=== PATIENT | female | born 1995 | race Caucasian/White ===

== ENCOUNTER 2016-10-18 14:50 | Emergency (ER) | payer OTHER ==
[~2016-10-18] VITALS: Ht 160 cm; Wt 84.9 kg
[~2016-10-18 14:50] MED LIST: AMOX500T3 PO; NORE0.3527 PO; PRENTAB26 PO
[2016-10-18 15:03] VITALS: TEMP 36.6; Ht 160 cm; Wt 84.9 kg
[2016-10-18] MEDS ORDERED: KETOROLAC TROMETHAMINE 30 MG/ML VIAL IV STA (15:19)
[2016-10-18 15:24] VITALS: O2SAT 97
[2016-10-18] MEDS ORDERED: SODIUM CHLORIDE 0.9% 1000ML 1,000 ML IV ONE (15:30)
[2016-10-18 15:41] LABS: BASO % 0.3 %; BASO ABS # 0.03 K/uL (0-0.2); COMPLETE YES; EOS % 7.5 %; HEMATOCRIT 41.4 % (37-47); IG% 0.1 %; LYMPH % 16.6 %; LYMPH ABS # 1.73 K/uL (1.2-3.4); MEAN CORPUSCULAR HEMOGLOBIN 27.5 pg (25-34); MEAN CORPUSCULAR HGB CONC 33.6 g/dl (32-36); MEAN PLATELET VOLUME 11.5 fL (7.4-10.4); MONO % 8.8 %; NEUT % 66.7 %; PLATELET COUNT 231 K/uL (130-400); RED BLOOD COUNT 5.05 M/uL (4.2-5.4); WHITE BLOOD COUNT 10.45 K/uL (4.8-10.8)
[2016-10-18] MEDS ORDERED: CHOL1000 PO (15:42)
[2016-10-18] MEDS ORDERED: ETON1IMP2 ID (15:42)
[2016-10-18] MEDS ORDERED: FLUO40CA8 PO (15:42)
[2016-10-18] MEDS ORDERED: ACET325T96 PO (15:43)
[2016-10-18 15:55] LABS: URINE APPEARANCE CLEAR (CLEAR); URINE BILIRUBIN NEG (NEG); URINE COLOR YELLOW; URINE NITRITE NEG (NEG); URINE PH 6.5 (4.5-7.5); URINE SPECIFIC GRAVITY 1.012 (1.000-1.030); UROBILINOGEN NEG (NEG); ZZUR CULT IF INDIC CLEAN CATCH NO
--- NOTE | 2016-10-18 16:00 | DIAGNOSTIC IMAGING REPORT ---
CHEST 2 VIEWS ROUTINE CLINICAL HISTORY: Chest pains dyspnea COMPARISON STUDY: No previous studies for comparison. FINDINGS: The bones soft tissues and hemidiaphragms are normal. The cardiomediastinal silhouette is normal. The lungs are clear. The pulmonary vasculature is normal. IMPRESSION: Negative chest. Electronically signed by: Timoteo Pond M.D. 10/18/2016 3:58 PM Dictated Date/Time: 10/18/2016 3:57 PM
[2016-10-18 16:02] LABS: BUN/CREATININE RATIO 23.1 (10-20); CALCIUM 8.9 mg/dl (8.5-10.1); CREATININE 0.9 mg/dl (0.60-1.20); POTASSIUM 4.1 mmol/L (3.5-5.1)
[2016-10-18 16:04] LABS: MANUAL MICROSCOPIC REQUIRED? NO; REVIEW REQ? NO
[2016-10-18 16:13] LABS: ALB/GLOB RATIO 1.1 (0.9-2); THYROID STIMULATING HORMONE 1.06 uIu/ml (0.300-4.500)
[2016-10-18] MEDS ORDERED: OPTIRAY 320 IV PRN (16:15)
--- NOTE | 2016-10-18 16:16 | DIAGNOSTIC IMAGING REPORT ---
CT ANGIOGRAM OF THE CHEST CLINICAL HISTORY: Atypical chest pain and shortness of breath COMPARISON STUDY: Chest x-ray dated 10/18/2016 TECHNIQUE: Following the IV administration of 93 mL of Optiray-320, CT angiogram of the thorax was performed from the thoracic inlet to the lung bases utilizing the pulmonary embolus protocol. Images are reviewed in the axial, sagittal, and coronal planes. IV contrast was administered without complication. MIP imaging was performed. CT DOSE: 386.67 mGy.cm FINDINGS: No pathologically enlarged axillary mediastinal or hilar lymph nodes were visualized. There was no evidence of thoracic aortic dilatation. There were no pulmonary artery filling defects to indicate acute pulmonary embolism. No pleural effusions are visualized. There was no evidence of focal pulmonary consolidation. IMPRESSION: 1. No acute intrathoracic findings 2. No CT evidence of acute pulmonary embolism 3. No evidence of focal pulmonary consolidation Electronically signed by: Carlton Dong M.D. 10/18/2016 4:14 PM Dictated Date/Time: 10/18/2016 4:11 PM
[2016-10-18 17:02] VITALS: BP 123/74; PULSE 68; O2SAT 99
--- NOTE | 2016-10-18 21:01 | EMERGENCY ROOM VISIT NOTE ---
History First contact with patient: 15:07 Chief Complaint: BACK PAIN Stated Complaint: CHEST/BACK PAIN History of Present Illness The patient is a 21 year old female who presents to the Emergency Room with complaints of back pain that began yesterday while having intercourse with her boyfriend. The patient states that she has had mid back pain that is now radiating into her chest since last evening. She does report some ongoing back pain chronically. The patient has not had fever or chills. No abdominal pain. She is on control and denies recent travel history. The patient was able to work today, but this exacerbated her chest pain symptoms. She did not sleep well last night. She has not taken anything [id number] for her discomfort which she currently rates an 8/10. Review of Systems More than 10 systems were reviewed and otherwise negative with the exception of history of present illness. Past Medical/Surgical History Medical Problems: (1) Abdominal Pain, Unspecified Site (2) Acute Pharyngitis (3) Bronchitis (4) Contusion of right foot (5) Cramping affecting , antepartum (6) Early stage of (7) Early stage of (8) Encounter for removal of sutures (9) Epistaxis (10) First trimester (11) History of miscarriage (12) Incomplete (13) Nasal & Sinus Dis Nec (14) Nausea vomiting and diarrhea (15) Oth Malaise&Fatigue (16) Pelvic pain (17) Pelvic pain (18) Periapical abscess (19) (20) Subchorionic hemorrhage (21) Syncope And Collapse (22) term in labor (23) Urin Tract Infection Nos (24) Urinary tract infection (25) Urinary tract infection (26) UTI (urinary tract infection) (27) Vaginal bleeding (28) Vaginal bleeding (29) Vaginal bleeding (30) Vaginal discharge (31) Vaginal discharge (32) Vaginitis Nos Surgical Problems: (1) H/O wisdom tooth extraction Family History Cancer Diabetes mellitus Social History Smoking Status: Current Every Day Smoker Alcohol Use: none Drug Use: none Marital Status: in relationship Housing Status: lives with family Occupation Status: unemployed Current/Historical Medications Scheduled Acetaminophen Tab (Tylenol), 650 MG PO DIRECTED Cholecalciferol (Vitamin D3), 1,000 INTER.UNIT PO DAILY Etonogestrel (Nexplanon), 1 DOSE ID [id number] Fluoxetine (Prozac), 40 MG PO DAILY Allergies Coded Allergies: No Known Allergies (Verified , 10/18/16) Physical Exam Vital Signs Date Time Temp Pulse Resp B/P Pulse Ox O2 Delivery O2 Flow Rate FiO2 10/18/16 17:02 68 16 123/74 99 10/18/16 16:15 67 16 123/74 98 Room Air 10/18/16 15:30 70 10/18/16 15:24 97 Room Air 10/18/16 15:03 36.6 84 18 118/67 98 Room Air Pain Rating (0-10): 3.0 Physical Exam VITALS: Vitals are noted on the nurse's note and reviewed by myself. Vital signs stable. GENERAL: Well-developed, well-nourished, white female, who is in no acute distress and resting comfortably. Patient is cooperative with the examination. HEAD: Normocephalic atraumatic. NECK: Supple without nuchal rigidity. No lymphadenopathy. No thyromegaly. Cervical spine is nontender. HEART: Regular rate and rhythm without murmurs gallops or rubs. LUNGS: Clear to auscultation bilaterally without wheezes, rales or rhonchi. No retractions or accessory muscle use. ABDOMEN: Positive normal bowel sounds x 4. Soft, nontender, without masses or organomegaly. No guarding or rebound tenderness. MUSCULOSKELETAL: No muscle atrophy, erythema, or edema noted. Full range of motion without joint tenderness in all extremities. No tenderness of the back. No significant paravertebral spasm. Negative straight leg raise bilateral. Negative Homans sign bilateral NEURO: Patient was alert and oriented to person place and time. CN II through XII grossly intact. Medical Decision & Procedures ER Provider Diagnostic Interpretation: CHEST 2 VIEWS ROUTINE CLINICAL HISTORY: Chest pains dyspnea COMPARISON STUDY: No previous studies for comparison. FINDINGS: The bones soft tissues and hemidiaphragms are normal. The cardiomediastinal silhouette is normal. The lungs are clear. The pulmonary vasculature is normal. IMPRESSION: Negative chest. CT ANGIOGRAM OF THE CHEST CLINICAL HISTORY: Atypical chest pain and shortness of breath COMPARISON STUDY: Chest x-ray dated 10/18/2016 TECHNIQUE: Following the IV administration of 93 mL of Optiray-320, CT angiogram of the thorax was performed from the thoracic inlet to the lung bases utilizing the pulmonary embolus protocol. Images are reviewed in the axial, sagittal, and coronal planes. IV contrast was administered without complication. MIP imaging was performed. CT DOSE: 386.67 mGy.cm FINDINGS: No pathologically enlarged axillary mediastinal or hilar lymph nodes were visualized. There was no evidence of thoracic aortic dilatation. There were no pulmonary artery filling defects to indicate acute pulmonary embolism. No pleural effusions are visualized. There was no evidence of focal pulmonary consolidation. IMPRESSION: 1. No acute intrathoracic findings 2. No CT evidence of acute pulmonary embolism 3. No evidence of focal pulmonary consolidation Laboratory Results 10/18/16 15:20 Red Blood Count 5.05, Mean Corpuscular Volume 82.0, Mean Corpuscular Hemoglobin 27.5, Mean Corpuscular Hemoglobin Concent 33.6, Mean Platelet Volume 11.5, Neutrophils (%) (Auto) 66.7, Lymphocytes (%) (Auto) 16.6, Monocytes (%) (Auto) 8.8, Eosinophils (%) (Auto) 7.5, Basophils (%) (Auto) 0.3, Neutrophils # (Auto) 6.98, Lymphocytes # (Auto) 1.73, Monocytes # (Auto) 0.92, Eosinophils # (Auto) 0.78, Basophils # (Auto) 0.03 10/18/16 15:20 Test 10/18/16 15:20 10/18/16 15:27 10/18/16 15:30 White Blood Count 10.45 K/uL (4.8-10.8) Red Blood Count 5.05 M/uL (4.2-5.4) Hemoglobin 13.9 g/dL (12.0-16.0) Hematocrit 41.4 % (37-47) Mean Corpuscular Volume 82.0 fL (80-100) Mean Corpuscular Hemoglobin 27.5 pg (25-34) Mean Corpuscular Hemoglobin Concent 33.6 g/dl (32-36) Platelet Count 231 K/uL (130-400) Mean Platelet Volume 11.5 fL (7.4-10.4) Neutrophils (%) (Auto) 66.7 % Lymphocytes (%) (Auto) 16.6 % Monocytes (%) (Auto) 8.8 % Eosinophils (%) (Auto) 7.5 % Basophils (%) (Auto) 0.3 % Neutrophils # (Auto) 6.98 K/uL (1.4-6.5) Lymphocytes # (Auto) 1.73 K/uL (1.2-3.4) Monocytes # (Auto) 0.92 K/uL (0.11-0.59) Eosinophils # (Auto) 0.78 K/uL (0-0.5) Basophils # (Auto) 0.03 K/uL (0-0.2) RDW Standard Deviation 38.6 fL (36.4-46.3) RDW Coefficient of Variation 12.9 % (11.5-14.5) Immature Granulocyte % (Auto) 0.1 % Immature Granulocyte # (Auto) 0.01 K/uL (0.00-0.02) Anion Gap 8.0 mmol/L (3-11) Est Creatinine Clear Calc Drug Dose 101.2 ml/min Estimated GFR () 105.2 Estimated GFR (Non- 90.8 BUN/Creatinine Ratio 23.1 (10-20) Calcium Level 8.9 mg/dl (8.5-10.1) Total Bilirubin 0.7 mg/dl (0.2-1) Aspartate Amino Transf (AST/SGOT) 19 U/L (15-37) Alanine Aminotransferase (ALT/SGPT) 27 U/L (12-78) Alkaline Phosphatase 85 U/L (45-117) Total Protein 7.4 gm/dl (6.4-8.2) Albumin 3.9 gm/dl (3.4-5.0) Globulin 3.5 gm/dl (2.5-4.0) Albumin/Globulin Ratio 1.1 (0.9-2) Lipase 115 U/L (73-393) Thyroid Stimulating Hormone (TSH) 1.060 uIu/ml (0.300-4.500) Bedside D-Dimer > 450 ng/mlFEU (0-450) Bedside Troponin I 0.000 ng/ml (0-0.045) Urine Color YELLOW Urine Appearance CLEAR (CLEAR) Urine pH 6.5 (4.5-7.5) Urine Specific [place] 1.012 (1.000-1.030) Urine Protein NEG (NEG) Urine Glucose (UA) NEG (NEG) Urine Ketones NEG (NEG) Urine Occult Blood NEG (NEG) Urine Nitrite NEG (NEG) Urine Bilirubin NEG (NEG) Urine Urobilinogen NEG (NEG) Urine Leukocyte Esterase SMALL (NEG) Urine WBC (Auto) 1-5 /hpf (0-5) Urine RBC (Auto) 0-4 /hpf (0-4) Urine Hyaline Casts (Auto) 0 /lpf (0-5) Urine Epithelial Cells (Auto) 10-20 /lpf (0-5) Urine Bacteria (Auto) NEG (NEG) Urine Test NEG (NEG) Medications Administered Medications (Trade) Dose Ordered Sig/Ted Route Start Time Stop Time Status Last Admin Dose Admin Sodium Chloride (Nss 1000ml) 1,000 ml @ 999 mls/hr Q1H1M ONCE IV 10/18/16 15:30 10/18/16 16:30 DC 10/18/16 15:32 999 MLS/HR Ketorolac Tromethamine (Toradol Inj) 30 mg NOW STAT IV 10/18/16 15:19 10/18/16 15:21 DC 10/18/16 15:32 30 MG ED Course Physical exam and history were performed. Nursing notes and EMR were reviewed. Patient appears to have chest pain that initially started after intercourse last evening with her boyfriend. The patient does not appear toxic on examination. EKG was performed and was normal sinus rhythm at 64 beats per minutes without ischemia or ectopy. IV access was established and labs were obtained. Chest x-ray was performed. The patient was hydrated and medicated as above. The patient blood work is as above and was reviewed. She does not have a significantly elevated white blood cell count, gross anemia, bandemia, or significant electrolyte imbalance. Lipase and transaminases are nondiagnostic. Troponin 1 is negative. The patient d-dimer is positive, and because of her symptoms I did elect to perform a CT scan of her chest. CT scan does not show evidence of acute pulmonary embolism or other intrathoracic etiology of her symptoms. On reevaluation the patient did have some improvement of her symptoms. Clinically I suspect that she is experiencing musculoskeletal pain that should improve over the next few days. I do not suspect other cardiopulmonary etiology for her symptoms based on her workup. The patient was asked to take [id number] analgesics. She is to follow with her primary care physician for further management. She was otherwise invited back to the ER with any new, worsening, or concerning symptoms. The chart was completed utilizing [employer] Voice Recognition Software. Grammatical errors, random word insertions, pronoun errors, and incomplete sentences are an occasional consequence of this system due to software limitations, ambient noise, and hardware issues. Any formal questions or concerns about the content, text, or information contained within the body of this dictation should be directly addressed to the provider for clarification. . Medical Decision Differential diagnosis includes, but is not limited to: Myocardial infarction, dysrhythmia, pericarditis, pneumothorax, aortic aneurysm/dissection, DVT/PE, anxiety, GERD, PUD, electrolyte imbalance, thyroid disorder, pneumonia, bronchitis, pancreatitis, and others Impression Primary Impression: Non-cardiac chest pain Departure Information Dispostion Home / Self-Care Condition GOOD Forms HOME CARE DOCUMENTATION FORM, IMPORTANT VISIT INFORMATION Patient Instructions My [facility] Additional Instructions You were seen and evaluated today on an emergency basis only. This is not a substitute for, or an effort to provide, complete comprehensive medical care. It is not possible to recognize and treat all injuries or illnesses in a single emergency department visit. For this reason it is recommended that you followup with your primary care physician next week for ongoing care and evaluation. For baseline pain relief you may alternate ibuprofen and acetaminophen every 4 hours for pain control. Take 600 mg ibuprofen (Advil) and then 4 hours later take 1000 mg acetaminophen (Tylenol). Do not take more than 3000 mg acetaminophen in a single day. You are welcome to return to the emergency department anytime with new, worsening, or concerning symptoms.
== END 2016-10-18 17:03 | disposition home or self-care (01) ==
LOC: C.EDB 14:51 → C.EDA 17:03
DX: R07.9 Chest pain, unspecified (principal); F17.200 Nicotine dependence, unspecified, uncomplicated; Z87.440 Personal history of urinary (tract) infections; Z87.828 Personal history of other (healed) physical injury and trauma; Z79.899 Other long term (current) drug therapy; Z80.9 Family history of malignant neoplasm, unspecified; Z83.3 Family history of diabetes mellitus

== ENCOUNTER 2016-11-19 07:02 | Emergency (ER) | payer OTHER ==
[~2016-11-19] VITALS: Ht 160 cm; Wt 85.5 kg
[~2016-11-19 07:02] MED LIST changes: +ACET325T96 PO; -AMOX500T3 PO; +CHOL1000 PO; +ETON1IMP2 ID; +FLUO40CA8 PO; -NORE0.3527 PO; -PRENTAB26 PO
[2016-11-19 07:06] VITALS: TEMP 36.9; Ht 160 cm; Wt 85.5 kg
[2016-11-19] MEDS ORDERED: ONDANSETRON INJ 2 MG/ML 2 ML VIAL IV STA (07:34)
[2016-11-19] MEDS ORDERED: SODIUM CHLORIDE 0.9% 1000ML 1,000 ML IV STA ×2 (07:34→08:23)
--- NOTE | 2016-11-19 07:44 | EMERGENCY ROOM VISIT NOTE ---
History First contact with patient: 07:10 Chief Complaint: VOMITING Stated Complaint: VOMITING,DIARRHEA,WEAKNESS,BLURRED VISION, Nursing Triage Summary: Patient c/o N/V/D since yesterday. States "I was pooping myself all night and I didn't even know it". Associates Headache. Chronic back pain. History of Present Illness The patient is a 21 year old female who presents to the Emergency Room with complaints of nausea, vomiting and diarrhea. The patient states her symptoms started yesterday. She has had vomiting and diarrhea every half hour. The patient states she is not able to keep anything down. She rates her discomfort a 7/10 and describes it as diffuse in nature. She reports an associated headache and feeling lightheaded and dizzy. The patient states that her boyfriend is admitted at [facility] with possible heatstroke but he has had vomiting. She denies any fevers. She denies any pain in her chest or trouble breathing. She denies any urinary symptoms. Review of Systems A 10 system review of systems was completed with positives and pertinent negatives listed in the HPI. Past Medical/Surgical History Medical Problems: (1) Abdominal Pain, Unspecified Site (2) Acute Pharyngitis (3) Bronchitis (4) Contusion of right foot (5) Cramping affecting , antepartum (6) Early stage of (7) Early stage of (8) Encounter for removal of sutures (9) Epistaxis (10) First trimester (11) History of miscarriage (12) Incomplete (13) Nasal & Sinus Dis Nec (14) Nausea vomiting and diarrhea (15) Oth Malaise&Fatigue (16) Pelvic pain (17) Pelvic pain (18) Periapical abscess (19) (20) Subchorionic hemorrhage (21) Syncope And Collapse (22) term in labor (23) Urin Tract Infection Nos (24) Urinary tract infection (25) Urinary tract infection (26) UTI (urinary tract infection) (27) Vaginal bleeding (28) Vaginal bleeding (29) Vaginal bleeding (30) Vaginal discharge (31) Vaginal discharge (32) Vaginitis Nos Surgical Problems: (1) H/O wisdom tooth extraction Family History Cancer Diabetes mellitus Social History Smoking Status: Current Every Day Smoker Alcohol Use: none Drug Use: none Marital Status: in relationship Housing Status: lives with family Occupation Status: unemployed Current/Historical Medications Scheduled Cholecalciferol (Vitamin D3), 1,000 INTER.UNIT PO DAILY Etonogestrel (Nexplanon), 1 DOSE ID [id number] Fluoxetine (Prozac), 40 MG PO DAILY Ondasetron Odt (Zofran Odt), 4 MG SL Q6H Allergies Coded Allergies: No Known Allergies (Verified , 11/19/16) Physical Exam Vital Signs Date Time Temp Pulse Resp B/P Pulse Ox O2 Delivery O2 Flow Rate FiO2 11/19/16 10:19 79 16 102/61 99 11/19/16 10:08 79 16 102/61 99 Room Air 11/19/16 08:43 82 15 112/63 97 Room Air 11/19/16 07:06 36.9 111 16 100/65 95 Room Air Physical Exam VITALS: Vitals are noted on the nurse's note and reviewed by myself. Vital signs stable. The patient is afebrile. GENERAL: This is a 21-year-old female, in no acute distress, nondiaphoretic, well-developed well-nourished. SKIN: The skin was without rashes, erythema, edema, or bruising. There is no tenting of the skin. Capillary reflex less than 2 seconds. HEAD: Normocephalic atraumatic. EARS: External auditory canals clear, tympanic membranes pearly shoemaker without erythema or effusion bilaterally. EYES: Pupils equal round and reactive to light and accommodation. Conjunctivae without injection, sclerae without icterus. Extraocular movements intact. NOSE: Patent, turbinates without inflammation or discharge. MOUTH: Mucous membranes moist. Tonsils are not enlarged. Pharynx without erythema or exudate. Uvula midline. Airway patent. Tongue does not deviate. NECK: Supple without nuchal rigidity. No lymphadenopathy. No thyromegaly. Cervical spine is nontender. No JVD. HEART: Regular rate and rhythm without murmurs gallops or rubs. LUNGS: Clear to auscultation bilaterally without wheezes, rales or rhonchi. No retractions or accessory muscle use. ABDOMEN: Positive bowel sounds x 4, hyperactive. Soft, nontender, without masses or organomegaly. MUSCULOSKELETAL: No muscle atrophy, erythema, or edema noted. Full range of motion in all extremities. Normal gait. Strength 5/5 throughout. NEURO: Patient was alert and oriented to person place and time. No focal neurological deficits. Medical Decision & Procedures Laboratory Results 11/19/16 07:27 Red Blood Count 5.03, Mean Corpuscular Volume 86.1, Mean Corpuscular Hemoglobin 28.8, Mean Corpuscular Hemoglobin Concent 33.5, Mean Platelet Volume 11.9, Neutrophils (%) (Auto) 86.6, Lymphocytes (%) (Auto) 6.6, Monocytes (%) (Auto) 5.7, Eosinophils (%) (Auto) 0.7, Basophils (%) (Auto) 0.1, Neutrophils # (Auto) 8.09, Lymphocytes # (Auto) 0.62, Monocytes # (Auto) 0.53, Eosinophils # (Auto) 0.07, Basophils # (Auto) 0.01 11/19/16 07:27 Test 11/19/16 07:15 11/19/16 07:27 11/19/16 08:20 Urine Color DK YELLOW Urine Appearance CLOUDY (CLEAR) Urine pH 6.0 (4.5-7.5) Urine Specific [place] 1.039 (1.000-1.030) Urine Protein 1+ (NEG) Urine Glucose (UA) NEG (NEG) Urine Ketones NEG (NEG) Urine Occult Blood NEG (NEG) Urine Nitrite NEG (NEG) Urine Bilirubin NEG (NEG) Urine Urobilinogen NEG (NEG) Urine Leukocyte Esterase SMALL (NEG) Urine WBC (Auto) >30 /hpf (0-5) Urine RBC (Auto) 5-10 /hpf (0-4) Urine Hyaline Casts (Auto) 1-5 /lpf (0-5) Urine Epithelial Cells (Auto) >30 /lpf (0-5) Urine Bacteria (Auto) 2+ (NEG) Urine Pathogenic Casts /lpf (0) Urine Mucus PRESENT (NONE PRSENT) Urine Test NEG (NEG) White Blood Count 9.35 K/uL (4.8-10.8) Red Blood Count 5.03 M/uL (4.2-5.4) Hemoglobin 14.5 g/dL (12.0-16.0) Hematocrit 43.3 % (37-47) Mean Corpuscular Volume 86.1 fL (80-100) Mean Corpuscular Hemoglobin 28.8 pg (25-34) Mean Corpuscular Hemoglobin Concent 33.5 g/dl (32-36) Platelet Count 191 K/uL (130-400) Mean Platelet Volume 11.9 fL (7.4-10.4) Neutrophils (%) (Auto) 86.6 % Lymphocytes (%) (Auto) 6.6 % Monocytes (%) (Auto) 5.7 % Eosinophils (%) (Auto) 0.7 % Basophils (%) (Auto) 0.1 % Neutrophils # (Auto) 8.09 K/uL (1.4-6.5) Lymphocytes # (Auto) 0.62 K/uL (1.2-3.4) Monocytes # (Auto) 0.53 K/uL (0.11-0.59) Eosinophils # (Auto) 0.07 K/uL (0-0.5) Basophils # (Auto) 0.01 K/uL (0-0.2) RDW Standard Deviation 41.9 fL (36.4-46.3) RDW Coefficient of Variation 13.3 % (11.5-14.5) Immature Granulocyte % (Auto) 0.3 % Immature Granulocyte # (Auto) 0.03 K/uL (0.00-0.02) Anion Gap 10.0 mmol/L (3-11) Est Creatinine Clear Calc Drug Dose 95.2 ml/min Estimated GFR () 97.3 Estimated GFR (Non- 83.9 BUN/Creatinine Ratio 31.8 (10-20) Calcium Level 8.4 mg/dl (8.5-10.1) Total Bilirubin 0.5 mg/dl (0.2-1) Aspartate Amino Transf (AST/SGOT) 13 U/L (15-37) Alanine Aminotransferase (ALT/SGPT) 31 U/L (12-78) Alkaline Phosphatase 84 U/L (45-117) Total Protein 7.6 gm/dl (6.4-8.2) Albumin 3.8 gm/dl (3.4-5.0) Globulin 3.8 gm/dl (2.5-4.0) Albumin/Globulin Ratio 1.0 (0.9-2) Lipase 99 U/L (73-393) Medications Administered Medications (Trade) Dose Ordered Sig/Ted Route Start Time Stop Time Status Last Admin Dose Admin Sodium Chloride (Nss 1000ml) 1,000 ml @ 999 mls/hr Q1H1M STAT IV 5/2/17 07:34 11/19/16 08:34 DC 11/19/16 07:39 999 MLS/HR Ondansetron HCl 4 mg 4 mg NOW STAT IV 11/19/16 07:34 11/19/16 07:36 DC 11/19/16 07:47 4 MG Sodium Chloride (Nss 1000ml) 1,000 ml @ 999 mls/hr Q1H1M STAT IV 11/19/16 08:23 11/19/16 09:23 DC 11/19/16 08:41 999 MLS/HR ED Course The patient was seen and examined. Previous visits were reviewed. The patient does not have a fever or leukocytosis. She does not have any significant electrolyte abnormalities. BUN is slightly elevated at 31 creatinine is normal at 0.96. Lipase is not elevated. Urinalysis suggests contamination. The patient does not have any urinary symptoms. Urine test was negative. C. difficile was negative and additional stool studies are pending. An initial and repeat abdominal examination did not elicit any focal abdominal tenderness. I do not suspect acute abdomen. The patient has had nausea, vomiting and diarrhea since last night. The patient was hydrated with normal saline. She was given Zofran. She was feeling much better. She was given a note for work. She should follow-up with her family doctor to have her BUN and creatinine rechecked in about 5-7 days. She should return to the ER with any fevers or localized abdominal pain. The case was discussed with Dr. Rodriguez who agrees with the assessment and treatment plan. Medical Decision DIFFERENTIAL DIAGNOSIS: Hepatitis, cholecystitis, cholangitis, biliary colic, pancreatitis, pneumonia, subdiaphragmatic abscess, appendicitis, inguinal hernia , nephrolithiasis, inflammatory bowel disease, mesenteric adenitis, peptic ulcer disease, GERD, gastritis, pancreatitis, myocardial infarction, pericarditis, ruptured aortic aneurysm, appendicitis, gastroenteritis, bowel obstruction, splenic infarct, diverticulitis, mesenteric ischemia, metabolic, peritonitis, among others. Impression Primary Impression: Nausea, vomiting, and diarrhea Departure Information Dispostion Home / Self-Care Condition GOOD Prescriptions Ondasetron Odt (ZOFRAN ODT) 4 Mg Tab 4 MG SL Q6H for Nausea, #20 TAB Prov: Khadijah Valdez PA-C 11/19/16 Referrals No Doctor, Assigned (PCP) Forms HOME CARE DOCUMENTATION FORM, IMPORTANT VISIT INFORMATION, Work Instructions Return To Work: 2 days Patient Instructions ED Food Poison Or Gastroenteritis, [facility] Additional Instructions Zofran as prescribed, as needed for nausea/vomiting Increase clear fluids Recheck with your family doctor for further evaluation and management and to have your kidney function Return with any fevers, worsening pain, pain in the right lower abdomen or generalized worsening symptoms
[2016-11-19 07:48] LABS: BASO % 0.1 %; BASO ABS # 0.01 K/uL (0-0.2); COMPLETE YES; EOS % 0.7 %; HEMATOCRIT 43.3 % (37-47); IG% 0.3 %; LYMPH % 6.6 %; LYMPH ABS # 0.62 K/uL (1.2-3.4); MEAN CELL VOLUME 86.1 fL (80-100); MEAN CORPUSCULAR HEMOGLOBIN 28.8 pg (25-34); MEAN CORPUSCULAR HGB CONC 33.5 g/dl (32-36); MEAN PLATELET VOLUME 11.9 fL (7.4-10.4); MONO % 5.7 %; NEUT % 86.6 %; PLATELET COUNT 191 K/uL (130-400); RED BLOOD COUNT 5.03 M/uL (4.2-5.4); WHITE BLOOD COUNT 9.35 K/uL (4.8-10.8)
[2016-11-19 07:58] LABS: BUN/CREATININE RATIO 31.8 (10-20); CALCIUM 8.4 mg/dl (8.5-10.1); CREATININE 0.96 mg/dl (0.60-1.20); POTASSIUM 3.3 mmol/L (3.5-5.1)
[2016-11-19 07:59] LABS: URINE APPEARANCE CLOUDY (CLEAR); URINE COLOR DK YELLOW; URINE EPITHELIAL CELL AUTO >30 /lpf (0-5); URINE NITRITE NEG (NEG); URINE SPECIFIC GRAVITY 1.039 (1.000-1.030); UROBILINOGEN NEG (NEG); ZZUR CULT IF INDIC CLEAN CATCH YES
[2016-11-19 08:05] LABS: MANUAL MICROSCOPIC REQUIRED? NO; REVIEW REQ? YES; URINE BILIRUBIN NEG (NEG)
[2016-11-19 08:13] LABS: URINE MUCUS PRESENT (NONE PRSENT)
[2016-11-19] MEDS ORDERED: ONDA4TAB10 SL (10:07)
[2016-11-19 10:19] VITALS: BP 102/61; PULSE 79; O2SAT 99
[2016-11-22 17:59] LABS: CRYPTOSPORIDIUM AG TC 37213 NOT DETECTED (NOT DETECTED); ISOSPORA+CYCLOSPORA NOT DETECTED; O&P GIARDIA AG NOT DETECTED (NOT DETECTED); O&P SOURCE OTHER-STOOL
== END 2016-11-19 10:20 | disposition home or self-care (01) ==
LOC: C.EDB 07:04 → C.EDA 10:20
DX: R11.2 Nausea with vomiting, unspecified (principal); R19.7 Diarrhea, unspecified; R51 Headache; R42 Dizziness and giddiness; Z79.899 Other long term (current) drug therapy; Z87.440 Personal history of urinary (tract) infections; Z87.828 Personal history of other (healed) physical injury and trauma; Z83.3 Family history of diabetes mellitus; F17.200 Nicotine dependence, unspecified, uncomplicated

== ENCOUNTER 2017-04-09 17:19 | Emergency (ER) | payer SELFPAY ==
[~2017-04-09] VITALS: Ht 160 cm; Wt 100.3 kg
[~2017-04-09 17:19] MED LIST changes: -ACET325T96 PO; +ONDA4TAB10 SL
[2017-04-09 17:30] VITALS: Ht 160 cm; Wt 100.3 kg
--- NOTE | 2017-04-09 17:50 | EMERGENCY ROOM VISIT NOTE ---
History Report prepared by Liliana: Kira Escalante Under the Supervision of: Dr. Noble Tomlinson M.D. First contact with patient: 17:33 Chief Complaint: MENTAL HEALTH EVALUATION Stated Complaint: PSYCH EVAL History of Present Illness The patient is a 21 year old white female with a past medical history of depression who presents to the ED with a cc of requiring a mental health evaluation to show that she is not mentally unstable beginning yesterday. Positive none. Negative nausea, vomiting, SI, HI. She requires an evaluation so that she can have custody of her child in court tomorrow. She does smoke tobacco. She admits to occasional alcohol use. She denies any drug use. Source of History: patient Onset: yesterday Position: other (mental health) Quality: other (mental health evaluation to show that she is not mentally unstable) Timing: other (persistent) Associated Symptoms: No nausea, No vomiting Note: Pt denies HI, SI. Review of Systems See HPI for pertinent positives and negatives. A total of ten systems were reviewed and were otherwise negative. Past Medical & Surgical Medical Problems: (1) Abdominal Pain, Unspecified Site (2) Acute Pharyngitis (3) Bronchitis (4) Contusion of right foot (5) Cramping affecting , antepartum (6) Early stage of (7) Early stage of (8) Encounter for removal of sutures (9) Epistaxis (10) First trimester (11) History of miscarriage (12) Incomplete (13) Nasal & Sinus Dis Nec (14) Nausea vomiting and diarrhea (15) Oth Malaise&Fatigue (16) Pelvic pain (17) Pelvic pain (18) Periapical abscess (19) (20) Subchorionic hemorrhage (21) Syncope And Collapse (22) term in labor (23) Urin Tract Infection Nos (24) Urinary tract infection (25) Urinary tract infection (26) UTI (urinary tract infection) (27) Vaginal bleeding (28) Vaginal bleeding (29) Vaginal bleeding (30) Vaginal discharge (31) Vaginal discharge (32) Vaginitis Nos Surgical Problems: (1) H/O wisdom tooth extraction Family History Cancer Diabetes mellitus Social History Smoking Status: Current Every Day Smoker Alcohol Use: occasionally Drug Use: none Housing Status: lives with family Occupation Status: employed Current/Historical Medications Scheduled Cholecalciferol (Vitamin D3), 1,000 INTER.UNIT PO DAILY Etonogestrel (Nexplanon), 1 DOSE ID [id number] Fluoxetine (Prozac), 40 MG PO DAILY Allergies Coded Allergies: No Known Allergies (Verified , 04/09/17) Physical Exam Vital Signs Date Time Temp Pulse Resp B/P (MAP) Pulse Ox O2 Delivery O2 Flow Rate FiO2 04/09/17 18:03 37.3 107 18 146/85 95 04/09/17 17:30 37.3 107 18 146/85 95 Room Air Physical Exam GENERAL: Awake, alert, well-appearing, NAD HENT: Normocephalic, atraumatic. EYES: Normal conjunctiva. Sclera non-icteric. NECK: Supple. No nuchal rigidity. FROM. RESPIRATORY: CTAB, no rhonchi, wheezing, crackles CARDIAC: RRR, no MRG ABDOMEN: Soft, NTND, BS+ MSK: No chest wall TTP, no LE edema NEURO: GCS 15, CN 2-12 intact, moves all 4s on command SKIN: No rash or jaundice noted. Noted scar to L volar distal forearm Medical Decision & Procedures ED Course 1735: The patient was evaluated in room A6. A complete history and physical exam was performed. I discussed results and discharge instructions: she verbalized understanding and agreement. The patient is ready for discharge. Medical Decision Differential diagnosis: Etiologies such as mood disorder, infection, hypoglycemia, electrolyte abnormalities, cardiac sources, intracerebral event, toxicologic, neurologic, as well as others were entertained. The patient is a 21 year old white female with a past medical history of depression who presents to the ED with a cc of requiring a mental health evaluation to show that she is not mentally unstable beginning yesterday. Patient was seen and evaluated the bedside. Patient denied any SI or HI. Patient denied any drug use. Patient stated that she needed to have some sort of note is showing that she was mentally capable of taking care of her child as were [id number] head obtained emergency custody of her child. Patient was seen with mental health specialist and we agreed at this time she does not require any further intervention but was told to follow-up with her PCP your psychiatrist prescribes her antidepressants. Patient agreed with plan of care patient was given strict follow-up discharge, precautions was discharged home. Medication Reconcilliation Current Medication List: was personally reviewed by me Blood Pressure Screening Patient's blood pressure: Elevated blood pressure Blood pressure disposition: Elevated BP felt to be situational Impression Primary Impression: Encounter for wellness examination in adult Additional Impression: Encounter for smoking cessation counseling Scribe Attestation The scribe's documentation has been prepared under my direction and personally reviewed by me in its entirety. I confirm that the note above accurately reflects all work, treatment, procedures, and medical decision making performed by me. Departure Information Dispostion Home / Self-Care Patient Instructions ED Smoking Cessation, My [facility] Additional Instructions Please return to the emergency department if you have worsening or recurrent symptoms not amenable to at-home treatment. Please call for a follow-up appointment with her primary care physician. Please take your medications as prescribed. If you have other concerns and/or complaints please feel free to also call your primary care physician's office or return the ED for further evaluation, management, and treatment. You have been examined and treated today on an emergency basis only. This is not a substitute for, or an effort to provide, complete comprehensive medical care. It is impossible to recognize and treat all injuries or illnesses in a single emergency department visit. It is therefore important that you follow up closely with [facility]. Call as soon as possible for an appointment. Thank you for your time and consideration. I look forward to speaking with you again soon. Please don't hesitate to call us if you have any questions. Problem Qualifiers
[2017-04-09 18:03] VITALS: BP 146/85; PULSE 107; TEMP 37.3; O2SAT 95
== END 2017-04-09 18:05 | disposition home or self-care (01) ==
LOC: C.EDB 17:21 → C.EDA 18:05
DX: Z00.8 Encounter for other general examination (principal); Z71.6 Tobacco abuse counseling; F17.200 Nicotine dependence, unspecified, uncomplicated; Z86.59 Personal history of other mental and behavioral disorders; Z83.3 Family history of diabetes mellitus

== ENCOUNTER 2021-03-09 22:08 | Inpatient (IN) ==
[2021-03-09] MEDS ORDERED: LACTATED RINGER'S 1,000 ML IV PRN (22:49)
[2021-03-09] MEDS ORDERED: OXYTOCIN 30 UNITS/500 ML BAG IV PRN (22:49)
[2021-03-09 23:11] LABS: Hemoglobin 11.7 g/dL (12.0-16.0); Mean Corpuscular Hemoglobin 29.5 pg (25-34); Mean Corpuscular Hgb Conc 34.4 g/dL (32-36); Mean Corpuscular Volume 85.9 fL (80-100); Mean Platelet Volume 10.4 fL (7.4-10.4); Platelet Count 238 K/uL (130-400); RDW Coefficient of Variation 13.4 % (11.5-14.5); RDW Standard Deviation 41.7 fL (36.4-46.3); Red Blood Count 3.96 M/uL (4.2-5.4)
[2021-03-09] MEDS ORDERED: BUPIVACAINE 0.25% 30 ML VIAL ONE (23:11)
[2021-03-09] MEDS ORDERED: fentaNYL citrate 100 MCG/2 ML VIAL ONE (23:11)
[2021-03-09] MEDS ORDERED: ePHEDrine sulfate 50 MG/ML AMP ONE (23:11)
[2021-03-09] MEDS ORDERED: fentaNYL 2MCG/ML ROPIVACAINE 1.25MG/ML 100 ML BAG EPI ONE (23:11)
[2021-03-09] MEDS ORDERED: SODIUM CHLORIDE 0.9% INJ 10 ML VIAL ONE (23:11)
[2021-03-10] MEDS ORDERED: PROMETHAZINE HCL 6.25 MG in SODIUM CHLORIDE 0.9% 50 ML IV PRN
[2021-03-10] MEDS ORDERED: NALOXONE HCL 1 MG in SODIUM CHLORIDE 0.9% 1000ML 1,000 ML IV PRN
[2021-03-10] MEDS ORDERED: ONDANSETRON INJ 2 MG/ML 2 ML VIAL IV PRN
[2021-03-10] MEDS ORDERED: NALBUPHINE HCL INJ 10 MG/ML AMP IV PRN
[2021-03-10] MEDS ORDERED: NALOXONE HCL 0.4 MG/1 ML VIAL/CARP IV PRN
[2021-03-10] MEDS ORDERED: diphenhydrAMINE 50 MG/ML VIAL IV PRN
[2021-03-10] MEDS ORDERED: ePHEDrine sulfate 50 MG/ML AMP IV PRN
[2021-03-10] MEDS ORDERED: fentaNYL 2MCG/ML ROPIVACAINE 1.25MG/ML 100 ML BAG EPI PRN
[2021-03-10] MEDS ORDERED: METHYLERGONOVINE MALEATE 0.2 MG/ML AMP ONE (01:57)
[2021-03-10] MEDS ORDERED: OXYTOCIN 30 UNITS/500 ML BAG IV PRN (02:03)
[2021-03-10] MEDS ORDERED: METHYLERGONOVINE MALEATE 0.2 MG/ML AMP IM ONE (02:03)
[2021-03-10] MEDS ORDERED: DIPHTHERIA/TETANUS/PERTUSSIS 0.5 ML SYR/VIAL IM ONE (02:03)
[2021-03-10] MEDS ORDERED: ACETAMINOPHEN 325 MG TAB PO PRN (02:03)
[2021-03-10] MEDS ORDERED: miSOPROStoL 200 MCG TAB PR ONE (02:03)
[2021-03-10] MEDS ORDERED: bisacodyL 10 MG SUPP PR PRN (02:03)
[2021-03-10] MEDS ORDERED: SUPERCREAM 0.870% 15 GM JAR EXT PRN (02:03)
[2021-03-10] MEDS ORDERED: BENZOCAINE 20% AER SPR 82.5 GM CAN EXT PRN (02:03)
[2021-03-10] MEDS ORDERED: HYDROCORTISONE ACETATE 25 MG SUPP PR PRN (02:03)
[2021-03-10] MEDS ORDERED: ONDANSETRON INJ 2 MG/ML 2 ML VIAL IV ONE (02:32)
[2021-03-10] MEDS: IBUPROFEN 600 MG TAB PO PRN ×4 (06:12→20:21)
[2021-03-10] MEDS ORDERED: ACETAMINOPHEN 1,000 MG/100 ML VIAL IV STA (07:46)
[2021-03-10] MEDS: PRENATAL VITAMIN 1 TAB PO SCH (08:14)
[2021-03-10] MEDS: FERROUS SULFATE 325 MG TAB PO SCH (08:14)
[2021-03-10] MEDS: DOCUSATE SODIUM 100 MG CAP PO SCH ×2 (08:14→20:21)
--- NOTE | 2021-03-10 08:27 | Anesthesia Procedure Note ---
Date of Service March 10, 2021 Anesthesia Post Epidural Note Vital Signs Vital Signs: Temp Pulse Resp BP Pulse Ox 36.8 C 76 18 118/62 98 03/10/21 07:30 03/10/21 07:24 03/10/21 07:30 03/10/21 07:24 03/10/21 02:03 Pain Intensity Abdomen: Pain Intensity: 10 Notes Mental Status: alert / awake / arousable and participated in evaluation Nausea / Vomiting: adequately controlled Pain: adequately controlled Airway Patency, RR, SpO2: stable & adequate BP & HR: stable & adequate Hydration State: stable & adequate Neuraxial Anesthesia: was administered and sensory block is resolving Anesthetic Complications: no major complications apparent and Pt Satisfied with anesthetic care Epidural: Removed without complications and With tip intact Notes: Epidural site clean, dry and intact. No signs of edema, erythema or bruising at insertion site. Pt instructed to request anesthesia if she has residual lower extremity numbness or if she develops lower extremity pain or weakness, back pain or headache.
[2021-03-11] MEDS: IBUPROFEN 600 MG TAB PO PRN ×2 (00:31→07:42)
[2021-03-11 06:23] LABS: Hematocrit (blood only) 33.2 % (37-47); Mean Corpuscular Hemoglobin 28.8 pg (25-34); Mean Corpuscular Hgb Conc 33.1 g/dL (32-36); Mean Corpuscular Volume 86.9 fL (80-100); Mean Platelet Volume 10.4 fL (7.4-10.4); Platelet Count 215 K/uL (130-400); RDW Coefficient of Variation 13.5 % (11.5-14.5); RDW Standard Deviation 43.1 fL (36.4-46.3); Red Blood Count 3.82 M/uL (4.2-5.4); White Blood Count 10.68 K/uL (4.8-10.8)
[2021-03-11] MEDS: DOCUSATE SODIUM 100 MG CAP PO SCH (07:42)
[2021-03-11] MEDS: PRENATAL VITAMIN 1 TAB PO SCH (07:42)
[2021-03-11] MEDS: FERROUS SULFATE 325 MG TAB PO SCH (07:42)
--- NOTE | 2021-03-11 09:56 | Obstetrical Progress Note ---
Date of Service March 11, 2021 Subjective Ambulation: ambulating normally Voiding: no voiding problems Passing Gas:: Yes Diet Tolerance:: regular diet Feeding Type:: bottle feeding Current Pain Level(1-10): 0 doing well plans for d/c Physical Exam Constitutional WD/WN, vitals as above comfortable fundus firm abdomen soft no edema neg Ronen's for d/c Results & Data ([facility]) Vital Signs (Past 12 Hours) Vital Signs Temp Pulse Resp BP Pulse Ox 03/11/21 09:53 36.4 C L 71 18 113/73 99 03/11/21 07:30 36.4 C L 71 18 113/73 99 03/11/21 04:40 36.5 C 71 16 110/70 03/10/21 23:55 36.5 C 71 18 111/69
[2021-03-11] MEDS ORDERED: bisacodyL 5 MG TABEC PO SCH (20:00)
--- NOTE | 2021-03-12 07:43 | Delivery Summary ---
HOSPITAL COURSE: The patient delivered a live female in right occiput anterior presentation. There was no nuchal cord. Infant was delivered and placed on mother's abdomen. Delayed cord clampi ng was performed after 1 minute. Cord blood was obtained. Placenta spontaneously delivered. Inspec tion of the placenta shows normal grossly looking placenta. Inspection of the perineum showed no laceration or tears. Estimated blood loss was 450 mL. Infant's weight is pending, Apgars are 9 and 10. Baby and mother ar e doing well, stable to recovery. All instruments were removed from the vagina and accounted for x2 including sponges and retractors. Job ID: [id number]
== END 2021-03-11 10:20 | disposition home or self-care (01) | DRG 807 ==
LOC: OPB 22:08 → 4S1 22:11 → 4S2 03-10 12:22
DX: Z87.891 Personal history of nicotine dependence; O80 Encounter for full-term uncomplicated delivery; Z83.3 Family history of diabetes mellitus; Z37.0 Single live birth; Z3A.39 39 weeks gestation of pregnancy